=== PATIENT | female | born 1970 | race Caucasian/White ===

== ENCOUNTER 2021-05-13 02:19 | Emergency (ER) | payer OTHER, MEDICAID ==
[~2021-05-13] VITALS: Ht 167.6 cm; Wt 99.3 kg
[2021-05-13] MEDS ORDERED: AMOXICILLIN 50500 M1 PO (03:51)
[2021-05-13] MEDS ORDERED: TRAMADOL 50 MG50 MG PO (03:51)
[2021-05-13] MEDS ORDERED: IBUPROFEN 600600 M1 PO (03:51)
[2021-05-13 06:27] VITALS: BP 170/96
[2021-05-15] MEDS ORDERED: MAGIC MOUTHWASH SWISH&SPIT (16:38)
== END 2021-05-13 06:29 | disposition home or self-care (01) ==
LOC: M.ERS 02:19
DX: K08.89 Other specified disorders of teeth and supporting structures (principal)

== ENCOUNTER 2021-11-21 00:27 | Emergency (ER) | payer OTHER, MEDICAID ==
[~2021-11-21] VITALS: Ht 167.6 cm; Wt 98.9 kg
[~2021-11-21 00:27] MED LIST: AMOXICILLIN 50500 M1 PO; IBUPROFEN 600600 M1 PO; MAGIC MOUTHWASH SWISH&SPIT; TRAMADOL 50 MG50 MG PO
[2021-11-21 01:12] LABS: ABSOLUTE BASOPHILS 0.1 thou/uL (0.0-0.2); ABSOLUTE EOSINOPHILS 0.8 thou/uL (0.0-0.7); ABSOLUTE LYMPHOCYTES 3.4 thou/uL (0.8-5.3); ABSOLUTE MONOCYTES 0.6 thou/uL (0.0-1.2); ABSOLUTE NEUTROPHILS 5.1 thou/uL (1.6-8.1); BASOPHILS 1.2 %; EOSINOPHILS 7.5 %; HEMATOCRIT 42.1 % (37.0-47.0); HEMOGLOBIN 14.1 gm/dL (12.0-15.0); LYMPHOCYTES 34.1 %; MCH 27.8 pg (26.0-34.0); MCHC 33.4 g/dL (28.0-37.0); MCV 83.3 fL (80.0-100.0); MONOCYTES 5.8 %; MPV 8.3 fl. (7.2-11.1); NUCLEATED RBCS 0 /100WBC; PLATELET COUNT* 307 thou/uL (150-400); POLYS 51.4 %; RBC 5.06 mil/uL (4.20-5.00); RDW-CV 14.5 % (10.5-14.5)
[2021-11-21 01:19] LABS: CREATININE 1.2 mg/dL (0.6-1.3); POTASSIUM 3.7 mmol/L (3.5-5.1)
[2021-11-21 01:28] LABS: TOTAL BILIRUBIN 0.3 mg/dL (<0.1-1.0); TOTAL PROTEIN 7.8 g/dL (6.4-8.2)
[2021-11-21 01:31] LABS: URINE BILIRUBIN NEGATIVE (Negative); URINE BLOOD TRACE (Negative); URINE CLARITY CLEAR; URINE COLOR YELLOW; URINE GLUCOSE-RANDOM NEGATIVE (Negative); URINE KETONES NEGATIVE (Negative); URINE LEUKOCYTES-REFLEX NEGATIVE (Negative); URINE NITRITE-REFLEX NEGATIVE (Negative); URINE PROTEIN NEGATIVE (Negative); URINE SPECIFIC GRAVITY >= 1.030 (1.005-1.030); URINE UROBILINOGEN 0.2 E.U./dl (0.2-1.0)
[2021-11-21] MEDS ORDERED: ZOFRAN ODT4 MG PO (04:57)
[2021-11-21] MEDS ORDERED: FLEXERIL PO (04:57)
[2021-11-21] MEDS ORDERED: HYDROCODON-ACE1 EAC8 PO (04:57)
[2021-11-21 05:10] VITALS: BP 128/83
== END 2021-11-21 05:10 | disposition home or self-care (01) ==
LOC: M.ERS 00:27
PROVIDERS: Emergency Medicine
DX: R10.11 Right upper quadrant pain (principal); M54.50 Low back pain, unspecified; Z90.49 Acquired absence of other specified parts of digestive tract; Z98.890 Other specified postprocedural states